=== PATIENT | male | born 1975 | race Caucasian/White ===

== ENCOUNTER 2016-09-23 18:58 | Emergency (ER) | payer OTHER ==
[~2016-09-23] VITALS: Ht 190.5 cm; Wt 145.1 kg
[~2016-09-23 18:58] MED LIST: BACTRIM DS 8001 TA1 PO; BACTROBAN CREAM15 GM T; CEPHALEXIN500 M1 PO; CLINDAMYCIN HC300 MG PO; GOOD NEIGHBOR325 MG PO; HYDROCODONE BIT1 T11 PO; MOTRIN800 MG PO; TRAMADOL HCL50 MG PO; TRIMOX500 MG PO; VICODIN 500 MG-1 TAB PO
[2016-09-23 19:08] VITALS: BP 126/74
[2016-09-23] MEDS ORDERED: CEPHALEXIN500 M1 PO (19:52)
== END 2016-09-23 20:52 | disposition home or self-care (01) ==
LOC: ED 18:58
DX: S01.111A Laceration without foreign body of right eyelid and periocular area, initial encounter (principal); S16.1XXA Strain of muscle, fascia and tendon at neck level, initial encounter; F17.200 Nicotine dependence, unspecified, uncomplicated; Z90.49 Acquired absence of other specified parts of digestive tract; W00.0XXA Fall on same level due to ice and snow, initial encounter; Y93.89 Activity, other specified; Y92.9 Unspecified place or not applicable; Y99.9 Unspecified external cause status